=== PATIENT | male | born 1960 | race Caucasian/White ===

== ENCOUNTER 2018-01-12 09:16 | Day surgery (SDC) | payer BC ==
[~2018-01-12 09:16] MED LIST: Acetaminophen TAB* 325 MG PO PRN; Buffered Lidocaine 0.9% SYRIN* 5 ML/SYR SYRINGE INTRADERM ONE
[2018-01-12] MEDS ORDERED: Midazolam* 1 MG/ML 2 ML VIAL (2 MG) ONE (10:24)
[2018-01-12 11:44] VITALS: BP 132/81
--- NOTE | 2018-01-12 21:25 | OP ---
OPERATIVE REPORT: DATE OF OPERATION: 01/12/18 - [place] DATE OF : 64 SURGEON: Henry Jacinto MD ANESTHESIOLOGIST: Armida Sexton MD ANESTHESIA: Monitored anesthesia care. PRE-OP DIAGNOSIS: Cataract, right eye with stigmatism. POST-OP DIAGNOSIS: Cataract, right eye with stigmatism. OPERATIVE PROCEDURE: Extracapsular cataract extraction of the right eye with intraocular lens implant. IMPLANTS: SN6AT9 12.5 diopter lens to the right eye at 92 degrees. DESCRIPTION OF PROCEDURE: The patient was given phenylephrine 2.5% and cyclopentolate 1% eye drops in the preoperative area to the operative eye. Scleral markings at 0 in 180 degrees was then made when the patient was in the upright position in the preoperative area to assist with Toric lens placement. The patient was brought to the operating room where a time-out was taken to identify the correct patient, site, and side of surgery. The patient's right eye was prepped and draped in the usual sterile fashion with 5% Betadine. A second time-out was taken to verify the correct patient, site, and side of surgery and correct lens selection. A lid speculum was placed to the right eye. A Greenberg degree marker was used to identify the 92-degree meridian with scleral markings. A 1-mm paracentesis blade was used to make a clear corneal incision in the superotemporal position. Preservative free 1% lidocaine was injected into the anterior chamber. DisCoVisc was then injected into the anterior chamber. A 2.75 mm keratome blade was used to make a triplanar incision at the inferotemporal position. A cystotome initiated a capsulorrhexis , which was completed with Utrata forceps in a continuous and curvilinear manner. Hydrodissection of the lens was performed with BSS on a cannula. The lens could be spun in the capsular bag. The phacoemulsification handpiece was used with a zrwrgu-[id number] technique to remove the nucleus in its entirety with 6.9 CDE. The I/A handpiece then removed the residual cortical lens material. DisCoVisc was injected to inflate the capsular bag. The planned SN6AT9 12.5 diopter lens was then injected into the capsular bag and oriented at 92 degrees. The residual DisCoVisc was removed from the eye with the I/A handpiece. The lens was again confirmed to be at the 92-degree meridian. The corneal incisions were hydrated and no leaks occurred at physiologic pressure around 20 mmHg per palpation. The lid speculum was removed and drapes removed. Maxitrol ointment was placed on the surface of the operative eye. An adhesive patch and shield was then placed on the operative eye. The patient was taken to the postoperative area in stable condition. [id number]/[facility] #: [id number] [facility] MEDICAL CENTERLucinda
== END 2018-01-12 11:53 | disposition home or self-care (01) ==
LOC: OREAST 09:16
PROVIDERS: ATTEND Student in an Organized Health Care Education/Training Program
DX: H25.11 Age-related nuclear cataract, right eye (principal); H43.812 Vitreous degeneration, left eye; E11.9 Type 2 diabetes mellitus without complications; Z79.84 Long term (current) use of oral hypoglycemic drugs; M10.9 Gout, unspecified
CPT/HCPCS: J2250; V2787

== ENCOUNTER 2018-01-19 06:46 | Day surgery (SDC) | payer BC ==
[2018-01-19] MEDS ORDERED: fentaNYL* 50 MCG/ML 2 ML VIAL (100 MCG VIAL) ONE (07:31)
[2018-01-19] MEDS ORDERED: Midazolam* 1 MG/ML 2 ML VIAL (2 MG) ONE (07:32)
[2018-01-19 08:52] VITALS: BP 125/80
[2018-01-19] MEDS ORDERED: acetaZOLAMIDE TAB* 250 MG ONE (09:13)
[2018-01-19] MEDS ORDERED: Ketorolac 0.5% OPHTH (NF) 0.5 % 5 ML BTL ONE (09:13)
[2018-01-19] MEDS ORDERED: Povidone Iodine 5% OPTH* 30 ML BTL ONE (09:13)
[2018-01-19] MEDS ORDERED: Cyclopentolate 1% OPTH.SOL* 2 ML BTL ONE (09:13)
[2018-01-19] MEDS ORDERED: Lidocaine 1% MPF* 2 ML VIAL ONE (09:13)
[2018-01-19] MEDS ORDERED: Tropicamide 1% OPTH.SOL* BTL ONE (09:13)
[2018-01-19] MEDS ORDERED: Neomycin/Polymy/Dex OPHTH.OIN* 3.5 GM ONE (09:13)
[2018-01-19] MEDS ORDERED: Tetracaine 0.5% OPTH.SOL 4 ML* 1 DROP BTL ONE (09:13)
[2018-01-19] MEDS ORDERED: Phenylephrine 2.5% OPTH.SOL* 2 ML BTL ONE (09:13)
--- NOTE | 2018-01-19 11:49 | OP ---
DATE OF OPERATION: 01/19/18 - [place] DATE OF : 64 SURGEON: Henry Jacinto MD ANESTHESIA: Monitored anesthesia care. PRE-OP DIAGNOSIS: Cataract, left eye with astigmatism. POST-OP DIAGNOSIS: Cataract, left eye with astigmatism. OPERATIVE PROCEDURE: Extracapsular cataract extraction of the left eye with intraocular lens implant. IMPLANTS: SN689 of 8.0 diopter lens at 73 degrees. COMPLICATIONS: None. DESCRIPTION OF PROCEDURE: The patient was given phenylephrine 2.5% and cyclopentolate 1% eye drops to the operative eye in the preoperative area. Corneal markings were placed at 0 in 180 degrees with the patient in the upright position to facilitate toric lens placement. The patient was brought to the operating room where a time-out was taken to identify the correct patient , site, and side of surgery. The patient's left eye was prepped and draped in the usual sterile fashion with 5% Betadine. A second time-out was taken to verify the correct patient, site, and side of surgery and correct lens selection. A lid speculum was placed to the left eye. Corneal markings were placed at the 73-degree meridian. A 1-mm paracentesis blade was used to make a clear corneal incision in the inferotemporal position. Preservative free 1% lidocaine was injected into the anterior chamber. DisCoVisc was then injected into the anterior chamber. A 2.75 mm keratome blade was used to make a triplanar incision at the superotemporal position. A cystotome initiated a capsulorrhexis, which was completed with Utrata forceps in a continuous and curvilinear manner. Hydrodissection of the lens was performed with BSS on a cannula. The lens could be spun in a capsular bag. The phacoemulsification handpiece was used with a [id number]-[id number] technique to remove the nucleus in its entirety with 6.8 CDE. The I/A handpiece then removed the residual cortical lens material. DisCoVisc was injected to inflate the capsular bag. The planned SN689 of 8.0 diopter lens was injected into the capsular bag and rotated to the 73-degree meridian. The residual DisCoVisc was removed from the eye with the I/A handpiece. Again, the lens was verified to be in the correct orientation. The corneal incisions were hydrated and no leaks occurred at physiologic pressure around 20 mmHg per palpation. The lid speculum was removed and drapes removed. Maxitrol ointment was placed to the surface of the operative eye. An adhesive patch and shield was then placed on the operative eye. The patient was taken to the postoperative area in stable condition. [id number]/[facility] #: [id number] MTDD
== END 2018-01-19 08:49 | disposition home or self-care (01) ==
LOC: OREAST 06:46
PROVIDERS: ATTEND Student in an Organized Health Care Education/Training Program
DX: H25.12 Age-related nuclear cataract, left eye (principal); H43.812 Vitreous degeneration, left eye; H52.202 Unspecified astigmatism, left eye; I10 Essential (primary) hypertension; E11.8 Type 2 diabetes mellitus with unspecified complications; Z79.84 Long term (current) use of oral hypoglycemic drugs
CPT/HCPCS: A9270-GY; J2250; J3010